=== PATIENT | male | born 2005 | race Hispanic/Latino ===

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

== ENCOUNTER 2024-06-03 20:11 | Emergency (ER) | payer SELFPAY ==
--- OUTSIDE RECORDS SUMMARY | 2024-06-03 20:14 | XMS REPORT | Continuity of Care Document ---
Author Name Unknown Address [address] [facility] [place] [address] [facility] thconnect Address [address] [place] [address] Care Team Providers Care Rose Grading Supervisor Name Role Phone Adam Horn, Barbara Primary Care Physician DAVID ERICKSON M.D. Attending Clinician Lori vailable Problems Condition Name Condition Details Condition Category Status Onset Date Resolution Date Last Treatment Date Treating Clinician Comments Source Closed fracture of transverse process of lumbar vertebra, initial encounter Closed fracture of transverse process of lumbar vertebra, initial encounter Problem Active [facility] Posterior dislocatio n of left elbow, initial encounter Posterior dislocatio n of left elbow, initial encounter Problem Active [facility] Allergies, Adverse Reactions, Alerts Allergy Name Allergy Type Status Severity Reaction(s) Onset Date Inactive Date Treating Clinician Comments Source cillins (Not Checked) Propensi ty to adverse reaction to drug Active 2023-08 00:00: 00 Danie Ford Medications Ordered Medication Name Filled Medication Name Start Date Stop Date Current Medication? Ordering Clinician Indication Dosage Frequency Signature (SIG) Comments Components Source ondansetron 8 mg disintegrat ing tablet 04-24 00:00: 00 Yes 1mg Danie Ford Vital Signs Vital Name Observation Time Observation Value Comments S cindy BP Systolic 2024-05-16 10:49:00 133 mm[Hg] Justin Ford BP Diastolic 2024-05-16 10:49:00 85 mm[Hg] Feroz Ford Weight Measured 2024-05-16 10:49:00 216.20 pounds Danie Ford Height Measured 2024-05-16 10:49:00 65.00 inches Danie Ford Body Temperature 2024-05-16 10:49:00 97.40 degrees Danie F Logan Heart Rate 2024-05-16 10:49:00 98.00 /min Otilia en F Logan Respiratory Rate 2024-05-16 10:49:00 16.00 /min Danie F Logan Heart Rate 2024-05-07 16:11:00 85.00 /min Otilia en F Logan Respiratory Rate 2024-05-07 16:11:00 18.00 /min Danie F Logan BP Systolic 2024-05-07 16:11:00 134 mm[Hg] Step hen F Logan BP Diastolic 2024-05-07 16:11:00 83 mm[Hg] Feroz phen F Logan Weight Measured 2024-05-07 16:11:00 229.00 pounds Danie F Logan Height Measured 2024-05-07 16:11:00 65.00 inches Danie Ford Body Temperature 2024-05-07 16:11:00 97.90 degrees Daniemarco Ford BP Systolic 2024-04-24 16:36:00 132 mm[Hg] Step hen F Logan BP Diastolic 2024-04-24 16:36:00 85 mm[Hg] Feroz phen F Logan Weight Measured 2024-04-24 16:36:00 205.40 pounds Danie Ford Height Measured 2024-04-24 16:36:00 65.00 inches Danie Ford Body Temperature 2024-04-24 16:36:00 98.20 degrees Danie Ford Heart Rate 2024-04-24 16:36:00 77.00 /min Otilia en F Logan Respiratory Rate 2024-04-24 16:36:00 19.00 /min Danie Ford Procedures Procedure Date / Time Performed Performing Clinicia n Source [U] XRAY SPINE LUMBOSACRAL 2 OR 3 VWS [id number] 2019-02-14 00:00:00 [facility] [U] XRAY ELBOW MIN 3 VWS LEFT [id number] 2019-02-14 00:00:00 [facility] Encounters Start Date/Time End Date/Time Encounter Type Admission Type Attending Clinicians Care Facility Care Department Encounter ID Source 2024-05-16 11:42:58 2024-05-16 11:42:58 Outpatient [facility] [id number] Daniemarco Ford 2024-05-16 00:00:00 2024-05-16 00:00:00 Outpatient Visit [facility] [id number] Danie Ford 2024-05-07 16:08:27 2024-05-07 16:08:27 Outpatient [facility] [id number] Danie Ford 2024-05-07 00:00:00 2024-05-07 00:00:00 Outpatient Visit [facility] [id number] Danie Ford 2024-04-24 14:31:22 2024-04-24 14:31:22 Outpatient [facility] [id number] Danie Ford 2019-02-14 14:00:00 2019-02-14 14:00:00 Appointmen t; DAVID ERICKSON M.D. ANDERSON, TERRENCE, M.D. [facility], [address] [id number] [facility] Results Test Description Test Time Test Comments Results Resul t Comments Source [U] XRAY ELBOW MIN 3 VWS LEFT [id number] 2019-02-14 13:36:00 Images acquired, not reported on this accession number. [facility] [U] XRAY SPINE LUMBOSACRAL 2 OR 3 VWS [id number] 2019-02-14 13:28:00 Images acquired, not reported on this accession number. [facility] Notes Date/Time Note Provider Source [facility]2024-10-01 00:00:00 [facility]
--- NOTE | 2024-06-03 21:29 | RAD REPORT ---
Exam:Foot Right 3 View CLINICAL HISTORY: Right foot pain FINDINGS: Minimally displaced fracture mid aspect of the third metatarsal. Periosteal deposition suggest that t he fracture is subacute. This should be correlated clinically. No dislocation
--- NOTE | 2024-06-03 21:52 | EDPHYS ---
Physician Documentation [facility] Name: Mp Ruano Age: 19 yrs Sex: Male : 2005 Arrival Date: 06/03/2024 Time: 20:11 Bed DX3 Private MD: ED Physician Cash Mcgovern HPI: 06/03 21:52 This 19 yrs old Male presents to ER via Ambulatory with complaints of Foot ec2 Injury - right. 21:52 Patient arrives today for evaluation of a right foot injury. Reports she is having ec2 right foot pain after injuring it several weeks ago. Reports pain with weightbearing.. Historical: - Allergies: 21:27 PENICILLINS; vc1 - Home Meds: 21:27 None [Active]; vc1 - PMHx: 21:27 None; vc1 - PSHx: 21:27 None; vc1 - Immunization history:: Client reports having NOT received the Covid vaccine. - Infectious Disease History:: Denies. - Social history:: Smoking status: Reported history of juuling and/or vaping. ROS: 21:52 Constitutional: as per hpi ec2 Exam: 21:52 Constitutional: GEN: NAD Head: atraumatic Eyes: EOMI Ears: External ears are ec2 normal. CV: regular rate LUNGS: no respiratory distress ABD: non-distended SKIN: no evidence of rashes MSK: Pinpoint tenderness over the third metatarsal Vital Signs: 21:25 BP 113 / 56; Pulse 92; Resp 15; Pulse Ox 96% ; Weight 96.62 kg; Height 5 ft. 6 in. ; vc1 Pain 0/10; 22:37 BP 112 / 62; Pulse 88; Resp 16; Pulse Ox 97% ; vc1 21:25 Body Mass Index 34.38 (96.62 kg, 167.64 cm) vc1 21:25 Pain Scale: Adult vc1 MDM: 21:05 Medical Screening Exam initiated ec2 21:52 Data reviewed: vital signs. ED course: Patient arrives today for right foot injury. ec2 Examination remarkable for MSK findings as above. Radiograph of the right foot shows third metatarsal fracture. Will place patient in postoperative boot and have the patient follow-up with surgery. Return precautions given . 06/03 20:18 Order name: Foot Right 3 View XRAY; Complete Time: 21:45 ec2 06/03 21:51 Order name: Post-op shoe; Complete Time: 22:29 ec2 Administered Medications: No medications were administered Disposition Summary: 06/03/24 21:51 Discharge Ordered Notes: Location: Home ec2 Condition: Stable ec2 Diagnosis - Third Metatarsal Fracture, right foot ec2 Followup: ec2 - With: Buck Santos MD - When: - Reason: Recheck today's complaints Discharge Instructions: - Discharge Summary Sheet ec2 Forms: - Work release form ec2 - Medication Reconciliation Form ec2 - Antibiotic Education ec2 - Prescription Opioid Use ec2 - Patient Portal Instructions ec2 - Leadership Thank You Letter ec2 Prescriptions: - acetaminophen-codeine 300-30 mg Oral tablet - take 1 tablet ORAL route 3 times per day; 15 tablet; Refills: 0, Product ec2 Selection Permitted Signatures: Dispatcher [employer] Sera Snyder RN RN vc1 Cash Mcgovern MD MD ec2 Corrections: (The following items were deleted from the chart) 21:27 21:27 Allergies: No Known Allergies; vc1 vc1
--- NOTE | 2024-06-03 21:52 | ER ---
Nurse's Notes [facility] Name: Mp Ruano Age: 19 yrs Sex: Male : 2005 Arrival Date: 06/03/2024 Time: 20:11 Bed DX3 Private MD: Diagnosis: Third Metatarsal Fracture, right foot Presentation: 06/03 21:25 Chief complaint: Patient states: Twisted ankle a couple of weeks ago, went to [place] [address] but they never said what was wrong. It still hurts]. Coronavirus screen: Client denies travel out of the [place] in the last 14 days. At this time, the client does not indicate any symptoms associated with coronavirus-19. Ebola Screen: Patient negative for fever greater than or equal to 101.5 degrees Fahrenheit, and additional compatible Ebola Virus Disease symptoms Patient denies exposure to infectious person. Patient denies travel to an Ebola-affected area in the 21 days before illness onset. No symptoms or risks identified at this time. Initial Sepsis Screen: Does the patient meet any 2 criteria? No. Patient's initial sepsis screen is negative. Does the patient have a suspected source of infection? No. Patient's initial sepsis screen is negative. Risk Assessment: Do you want to hurt yourself or someone else? Patient reports no desire to harm self or others. Onset of symptoms was June 03, 2024. 21:25 Method Of Arrival: Ambulatory vc1 21:25 Acuity: DELONTE 4 vc1 Triage Assessment: 21:27 General: Appears in no apparent distress. uncomfortable, Behavior is calm, cooperative, vc1 appropriate for age. Pain: Complains of pain in right lateral malleolus and right medial malleolus Pain does not radiate. Pain currently is 0 out of 10 on a pain scale. EENT: No deficits noted. No signs and/or symptoms were reported regarding the EENT system. Neuro: Level of Consciousness is awake, alert, obeys commands, Oriented to person, place, time, situation, Appropriate for age. Cardiovascular: Capillary refill < 3 seconds Patient's skin is warm and dry. Respiratory: Airway is patent Respiratory effort is even, unlabored, Respiratory pattern is regular, symmetrical. Musculoskeletal: Reports pain in right lateral malleolus and right medial malleolus. Injury Description: "twisted". Historical: - Allergies: 21:27 PENICILLINS; vc1 - Home Meds: 21:27 None [Active]; vc1 - PMHx: 21:27 None; vc1 - PSHx: 21:27 None; vc1 - Immunization history:: Client reports having NOT received the Covid vaccine. - Infectious Disease History:: Denies. - Social history:: Smoking status: Reported history of juuling and/or vaping. Screenin:28 Abuse screen: Denies threats or abuse. Nutritional screening: No deficits noted. vc1 Tuberculosis screening: No symptoms or risk factors identified. 22:35 [facility] ED Fall Risk Assessment (Adult) History of falling in the last 3 months, vc1 including since admission No falls in past 3 months (0 pts) Confusion or Disorientation No (0 pts) Intoxicated or Sedated No (0 pts) Impaired Gait No (0 pts) Mobility Assist Device Used No (0 pt) Altered Elimination No (0 pt) Score/Fall Risk Level 0 - 2 = Low Risk Oriented to surroundings, Maintained a safe environment, Educated pt \\T\\ family on fall prevention, incl call for assistance when getting out of bed. Assessment: 22:36 General: See triage assessment. vc1 Vital Signs: 21:25 BP 113 / 56; Pulse 92; Resp 15; Pulse Ox 96% ; Weight 96.62 kg; Height 5 ft. 6 in. ; vc1 Pain 0/10; 22:37 BP 112 / 62; Pulse 88; Resp 16; Pulse Ox 97% ; vc1 21:25 Body Mass Index 34.38 (96.62 kg, 167.64 cm) vc1 21:25 Pain Scale: Adult vc1 ED Course: 20:13 Patient arrived in ED. ra3 21:05 Cash Mcgovern MD is Attending Physician. ec2 21:12 Foot Right 3 View XRAY In Process Unspecified. EDMS 21:27 Triage completed. vc1 21:27 Arm band placed on right wrist. vc1 21:51 Buck Santos MD is Referral Physician. ec2 22:29 Sera Abreu, GELA is Primary Nurse. vc1 22:35 Patient has correct armband on for positive identification. Seen in diagnostic chair. vc1 Provided Education on: f/u with ortho. 22:36 No provider procedures requiring assistance completed. Patient did not have IV access vc1 during this emergency room visit. Administered Medications: No medications were administered Medication: 22:36 VIS not applicable for this client. vc1 Outcome: 21:51 Discharge ordered by . ec2 22:36 Discharged to home ambulatory, with significant other, vc1 22:36 Condition: good 22:36 Discharge instructions given to patient, Instructed on discharge instructions, follow up and referral plans. medication usage, Demonstrated understanding of instructions, follow-up care, medications, Prescriptions given X 1, 22:37 Patient left the ED. vc1 Signatures: Dispatcher [employer] Sera Snyder RN RN vc1 Cash Mcgovern MD MD ec2 Roseline Peters ra3 Corrections: (The following items were deleted from the chart) 21:27 21:27 Allergies: No Known Allergies; vc1 vc1
[2024-06-03 23:17] VITALS: BP 112/62; O2SAT 97
== END 2024-06-03 22:37 | disposition home or self-care (01) ==
LOC: ER 20:11
DX: S92.331A Displaced fracture of third metatarsal bone, right foot, initial encounter for closed fracture (principal)
CPT/HCPCS: 99283